=== PATIENT | male | born 1975 | race Caucasian/White ===

== ENCOUNTER 2016-10-10 02:52 | Emergency (ER) | payer OTHER ==
[2016-10-10 02:50] LABS: BASOPHIL# 0.1 X10e3 (0-0.3); BASOPHIL% 0.6 % (0-2.5); DIFF IND NO; EOSINOPHIL% 0.1 % (0.0-7.0); HEMATOCRIT 43.1 % (38.0-50.0); HEMOGLOBIN 15.1 gm/dL (13.0-16.0); LYMPHOCYTE# 2.3 X10e3 (1.0-3.5); LYMPHOCYTE% 12.3 % (17.0-45.0); MEAN CELL VOLUME 92.9 FL (83-96); MEAN CORPUSCULAR HEMOGLOBIN 32.5 PG (28-34); MEAN PLATELET VOLUME 8.3 FL (6.5-11.5); MONOCYTE% 10.9 % (3.0-12.0); NEUTROPHIL# 14.1 X10e3 (1.5-7.1); NEUTROPHIL% 76.1 % (40-75); PLATELET COUNT 229 X10e3 (140-420); RED BLOOD COUNT 4.65 X10e (3.90-5.60); RED CELL DISTRIBUTION WIDTH 13.3 % (11.0-15.5); WHITE BLOOD COUNT 18.5 X10e3 (4.0-10.5)
[~2016-10-10 02:52] MED LIST: CIPRO PO; CIPRO250 MG PO; ERYTHROMYCIN O3.5 GM; ERYTHROMYCIN O3.5 GM OP; FLOMAX0.4 M1 DOB; FLOMAX0.4 M1 PO; GENTAK3.5 GM OP; HYDROCODON-ACE1 EAC5 PO; IBUPROFEN800 MG PO; LEVAQUIN750 M1 PO; LISINOPRIL; LORTAB 10/500 T1 TAB PO; NEXIUM PO; NO MEDICATIONS; NORCO 10-325 TA1 TAB PO; OXYCODONE W-APA1 CAP PO; PERCOCET 5-3251 TAB PO; PERCOCET 51 UDTAB 5/ DOB; PHENERGAN12.5 MG PO; PHENERGAN25 M1 PO; PHENERGAN25 MG PO; PRINIVIL10 MG PO; TYLOX 5/500 CAP1 CAP PO; VICODIN 5/1 TAB 5/50 PO; ZOFRAN ODT4 MG PO; ZOFRAN ODT4 MG/UDTAB PO
[2016-10-10 03:04] LABS: ALBUMIN SERUM 4.7 g/dL (3.5-5.0); BILIRUBIN, DIRECT 0.1 mg/dL (0.0-0.2); BILIRUBIN,INDIRECT 0.8 mg/dL (0.0-0.9); BILIRUBIN,TOTAL 0.9 mg/dL (0.2-2.0); BUN/CREATININE RATIO 13.33; CALCIUM SERUM 9.8 mg/dL (8.4-10.2); CREATININE SERUM 1.2 mg/dL (0.6-1.4); GLOM FILT RATE Estimated 75.2 mL/min (>60); POTASSIUM 3.6 mmol/L (3.5-5.1); PROTEIN TOTAL SERUM 8.1 g/dL (6.0-8.3)
== END 2016-10-10 05:11 | disposition home or self-care (01) ==
LOC: SED 02:52
PROVIDERS: Emergency Medicine
DX: E86.0 Dehydration (principal); R10.84 Generalized abdominal pain; F17.200 Nicotine dependence, unspecified, uncomplicated
CPT/HCPCS: 36415; 80048; 80076; 83690; 85025; 96361; 96374; 96375; 96376; 99284; J2270; J2405

== ENCOUNTER 2016-12-12 11:05 | Emergency (ER) | payer OTHER ==
--- NOTE | ~2016-12-12 | CT4 ---
[facility] A Service of [facility] & [facility] RADIOLOGY TEXT RESULTS PATIENT: LENARD CERON LOCATION: SED : 75 UNIT #: [id number] AGE: [address]: Juan Mosqueda MD SEX: M ORDER DR: [id number] [place] [id number] E MR#: [id number] Acc #: [id number] NAME: LENARD CERON : 1975 SEX: M STUDY DATE/TIME: 12/12/2016 12:13 UNIT: SED ROOM: STUDY DESCRIPTION: CT Abd and Pelv Wo Cont Attending Physician: Juna Mosqueda M.D. Ordering Physician: Juan Mosqueda M.D. Primary Care Physician: Gino Peraza M.D. MEDICAL IMAGING REPORT This report is preliminary unless electronic signature is present. EXAM CT abdomen and pelvis 12/12/2016 INDICATION Abdominal pain for 3 days with vomiting. TECHNIQUE Axial images were obtained through the abdomen and pelvis without contrast. Multiplanar reformats were obtained. This CT exam was performed with one or more of the following radiation dose reduction techniques: Automatic exposure control, adjustment of mA and/or kV according to patient size, and iterative reconstruction. COMPARISON Comparison made with 03/26/2016. FINDINGS ABDOMEN: Lung bases are clear. No renal or ureteral stones are seen. There is no hydronephrosis. The unenhanced solid organs are within normal limits. Gallbladder unremarkable. No adenopathy or free fluid is seen. There is some atherosclerotic disease in the aorta. There is no aneurysm. The unopacified GI tract is within normal limits. PELVIS: There are no lower ureteral stones. The bladder is normal. No free fluid is seen. The appendix is normal. The remainder of the unopacified GI tract is within normal limits as well. Old right side lumbar transverse process fractures are present. IMPRESSION 1. No acute findings in the abdomen or pelvis. 2. No renal or ureteral stones. No hydronephrosis. 3. Grossly normal unopacified GI tract, including the appendix. 4. Atherosclerotic disease. [facility] A Service of [facility] & [facility] RADIOLOGY TEXT RESULTS PATIENT: LENARD CERON LOCATION: SED : 75 UNIT #: [id number] AGE: [address]: Juan Mosqueda MD SEX: M ORDER DR: Dictated by... Oracio Lopez Jr., M.D. THIS IS AN ELECTRONICALLY VERIFIED REPORT Oracio Lopez Jr., M.D. at 12/12/2016 4:59 PM LOULOU/kiran TD: 12/12/2016 14:09 JOB #: [id number] MEDICAL IMAGING REPORT Page 1 of 1
[2016-12-12 11:58] LABS: BASOPHIL# 0.1 X10e3 (0-0.3); BASOPHIL% 0.9 % (0-2.5); EOSINOPHIL% 0.3 % (0.0-7.0); HEMATOCRIT 44.2 % (38.0-50.0); HEMOGLOBIN 15.7 gm/dL (13.0-16.0); LYMPHOCYTE# 2.4 X10e3 (1.0-3.5); LYMPHOCYTE% 25.2 % (17.0-45.0); MEAN CELL VOLUME 93.4 FL (83-96); MEAN CORPUSCULAR HEMOGLOBIN 33.2 PG (28-34); MEAN CORPUSCULAR HGB CONC 35.5 g/dL (30-36); MEAN PLATELET VOLUME 8.3 FL (6.5-11.5); MONOCYTE# 0.9 X10e3 (0-1.0); MONOCYTE% 9.6 % (3.0-12.0); NEUTROPHIL# 6.1 X10e3 (1.5-7.1); PLATELET COUNT 206 X10e3 (140-420); RED BLOOD COUNT 4.73 X10e (3.90-5.60); RED CELL DISTRIBUTION WIDTH 13.1 % (11.0-15.5); WHITE BLOOD COUNT 9.6 X10e3 (4.0-10.5)
[2016-12-12 12:34] LABS: DIFF IND NO
[2016-12-12 12:39] LABS: ALBUMIN SERUM 4.8 g/dL (3.5-5.0); BILIRUBIN, DIRECT 0.3 mg/dL (0.0-0.2); BILIRUBIN,TOTAL 1.3 mg/dL (0.2-2.0); CALCIUM SERUM 9.5 mg/dL (8.4-10.2); GLOM FILT RATE Estimated 93.1 mL/min (>60); PROTEIN TOTAL SERUM 8.5 g/dL (6.0-8.3)
[2016-12-12 12:45] LABS: POTASSIUM 2.9 mmol/L (3.5-5.1)
[2016-12-12 13:19] LABS: URINE APPEARANCE CLEAR; URINE BILIRUBIN NEG (NEG); URINE BLOOD NEG (NEG); URINE COLOR YELLOW; URINE GLUCOSE NEG (NORM); URINE KETONE 1+ (NEG); URINE LEUKOCYTE ESTERASE NEG (NEG); URINE NITRATE NEG (NEG); URINE PH 8.5 (5-8); URINE SPECIFIC GRAVITY 1.015 (1.003-1.035); URINE UROBILINOGEN >=8.0 MG/DL (NORM)
[2016-12-12 13:21] LABS: MICRO INDICATED? NO; URINE PROTEIN NEG (NEG)
== END 2016-12-12 14:26 | disposition home or self-care (01) ==
LOC: SED 11:05
PROVIDERS: Emergency Medicine
DX: E87.6 Hypokalemia (principal); I10 Essential (primary) hypertension; Z87.442 Personal history of urinary calculi
CPT/HCPCS: 36415; 74176; 80048; 80076; 81003; 82150; 83690; 85025; 96372; 96374; 96375; 99284; J0780; J2270; J2405; J2550